=== PATIENT | female | born 1965 | race Caucasian/White ===

== ENCOUNTER → 2017-02-04 | Outpatient (CLI) | payer OTHER ==
[2017-02-04 11:01] LABS: HEMOGLOBIN 14.6 gm/dl (12.3-15.3); RED BLOOD COUNT 4.5 M/UL (4.00-5.10)
[2017-02-04 11:21] LABS: BUN/CREATININE RATIO 11 (0-10)
== END ==
LOC: LAB 09:47
PROVIDERS: Family Medicine
DX: M25.40 Effusion, unspecified joint (principal); M25.50 Pain in unspecified joint
CPT/HCPCS: 36415; 80053; 80061; 83704; 84443; 85027; 86039; 86431